=== PATIENT | male | born 1995 | race Two or more races ===

== ENCOUNTER 2022-02-02 05:53 | Emergency (ER) | payer MEDICAID ==
[~2022-02-02] VITALS: Ht 177.8 cm; Wt 170.0 kg
[2022-02-02 08:01] VITALS: BP 131/83
[2022-02-02] MEDS ORDERED: KETOROLAC TROMETH 60MG/2ML VIAL IM ONE (08:15)
[2022-02-02] MEDS ORDERED: OXYM-15 (08:51)
[2022-02-02] MEDS ORDERED: ACET-1158 PO (08:51)
[2022-02-02] MEDS ORDERED: IBUP800T26 PO (08:51)
[2022-02-02] MEDS ORDERED: LORA-483 GT (08:51)
== END 2022-02-02 08:52 | disposition home or self-care (01) ==
LOC: ER 05:53
DX: J06.9 Acute upper respiratory infection, unspecified (principal); B97.89 Other viral agents as the cause of diseases classified elsewhere; Z20.822 Contact with and (suspected) exposure to COVID-19
CPT/HCPCS: 36415; 87426; 87804; 96372; 99283; J1885

== ENCOUNTER 2023-09-02 22:25 | Emergency (ER) | payer MEDICAID ==
[~2023-09-02] VITALS: Ht 177.8 cm; Wt 80.0 kg
[~2023-09-02 22:25] MED LIST: ACET500T58 PO; IBUP-1455 PO; LORA-483 GT; OXYM-15; PANT40TA2 PO; ZOFR4T PO
[2023-09-02 22:58] LABS: Basophils # (auto) 0 10 ^3/uL (0-0.2); Basophils % (auto) 0.2 % (0.0-2.0); Eosinophils # (auto) 0.1 10 ^3/uL (0-0.8); Eosinophils % (auto) 1.2 % (0.0-7.0); Hematocrit 49.5 % (41.0-53.0); Hemoglobin 16.9 g/dL (13.5-17.5); Lymphocytes # (auto) 2.4 10 ^3/uL (0.4-5.4); Lymphocytes % (auto) 42.7 % (10.0-50.0); Mean Corpuscular Hemoglobin 31.8 pg (28.0-32.0); Mean Corpuscular Hgb Conc. 34.3 g/dL (32.0-36.0); Mean Corpuscular Volume 92.9 fL (80.0-100.0); Monocytes # (auto) 0.5 10 ^3/uL (0-1.3); Monocytes % (auto) 8.1 % (0.0-12.0); Neutrophils # (auto) 2.7 10 ^3/uL (1.6-8.6); Neutrophils % (auto) 47.8 % (37.0-80.0); Nucleated Red Blood Cells % 0.1 %; Red Blood Cells 5.33 10^6/uL (4.5-5.90); Red Cell Distribution Width 13.3 % (11.8-14.3); White Blood Cell 5.7 10^3/uL (4.4-10.8)
[2023-09-02 23:22] LABS: Alanine Aminotransferase 41 U/L (7-40); Albumin 4.8 g/dL (3.2-4.8); Alkaline Phosphatase 83 U/L (46-116); Anion Gap 6 (5-15); Aspartate Aminotransferase 36 U/L (13-40); BUN/Creatinine Ratio 10.5 (10.0-20.0); Bilirubin, Total 0.5 mg/dL (0.2-1.0); Blood Urea Nitrogen 11 mg/dL (9-23); Carbon Dioxide 27 mmol/L (20-30); Chloride 105 mmol/L (98-107); Glucose 107 mg/dL (74-106); Magnesium 2.2 mg/dL (1.6-2.6); Potassium 4.3 mmol/L (3.5-5.1); Sodium 138 mmol/L (136-145); Total Protein 7.2 g/dL (5.7-8.2)
[2023-09-03 01:53] VITALS: BP 121/75; PULSE 56; RESP 18; TEMP 98.6; O2SAT 98
== END 2023-09-02 22:27 | disposition left against medical advice (07) ==
LOC: ER 22:25
DX: R07.89 Other chest pain (principal); Z53.21 Procedure and treatment not carried out due to patient leaving prior to being seen by health care provider; Z79.899 Other long term (current) drug therapy; W18.39XA Other fall on same level, initial encounter; Y93.89 Activity, other specified; Y92.89 Other specified places as the place of occurrence of the external cause; Y99.8 Other external cause status
CPT/HCPCS: 36415; 71045; 80053; 83735; 84484; 85025; 93005

== ENCOUNTER 2024-06-14 22:00 | Emergency (ER) | payer MEDICAID ==
[~2024-06-14] VITALS: Ht 177.8 cm; Wt 76.6 kg
--- NOTE | 2024-06-14 22:17 | ED.PDOC ---
HPI Allergic reaction HPI Comments 28-year-old male came to emergency room due to allergic reaction. 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 Patient self medicated with an epi-pen and decided to go directly to the ER. Denies having any rashes or pruritus. Chief Complaint: Allergic Reaction Time Seen by MD: 22:15 Primary Care Provider: MARIELY Reviewed Notes: Nurses Notes Allergies: Coded Allergies: Codeine (Verified Allergy, Severe, 05/02/23) Morphine (Verified Allergy, Severe, 05/02/23) Sesame Oil (Verified Allergy, Severe, 06/14/24) Home Meds Active Scripts Epinephrine (Anaphylaxis) (Auvi-Q) 0.1 Mg/0.1 Ml Inj, 0.5 MG IJ O PRN for 1 Day, #1 INJ Prov:GILDARDO GARVIN MD 06/15/24 Prednisone (Prednisone) 20 Mg Tab, 20 MG PO DAILY for 4 Days, #4 MG Prov:GILDARDO GARVIN MD 06/15/24 Diphenhydramine Hcl (Benadryl Allergy) 25 Mg Tab, 25 MG PO TIDPRN PRN for 5 Days, #15 TAB Prov:GILDARDO GARVIN MD 06/15/24 Ondansetron Odt 4MG Tab (ZOFRAN PO) 4 Mg Tb, 4 MG PO Q8HP PRN for 7 Days, #21 TAB ODT TAB-DISSOLVE IN MOUTH, THEN SWALLOW Prov:PENELOPE GAINES MD 05/02/23 Pantoprazole Sodium Sesquihydr (Protonix) 40 Mg Tab, 40 MG PO DAILY, #30 TAB Prov:PENELOPE GAINES MD 05/02/23 Oxymetazoline Hcl (AFRIN 12 HOUR) 0.05 % Spr, 1 SPRAY NA BID, #15 ML Prov:GITA LLANOS 02/02/22 Loratadine (CLARITIN TABLET) 10 Mg Tb, 10 MG GT DAILY, #10 TAB Prov:GITA LLANOS 02/02/22 Ibuprofen Micronized (Ibuprofen) 800 Mg Tab, 800 MG PO TIDP PRN, #30 TAB Prov:GITA LLANOS 02/02/22 Acetaminophen (Acetaminophen) 500 Mg Tab, 500 MG PO Q4HPRN PRN, #30 TAB Prov:GITA LLANOS PAC 02/02/22 Information Source: Patient Mode of Arrival: EMS Severity: Moderate Rash: None SOB: Moderate Difficulty swallowing: Moderate Pruritus: None Timing: Minutes Duration: Since onset Prehospital treatment: Treatment (epi pen) Location: Throat Exposed to: Food Developed: Difficult Swallowing, Shortness of Breath, Throat Swelliing, Wheeze Review of Systems REVIEW OF SYSTEMS: No fever, no chills, or fatigue HEENT: (+) sore throat, no earache, no congestion, no neck pain. Cardiac: No chest pain. No palpitations. Lungs: (+) shortness of breath, no cough. (+) wheezing GI: No nausea, no vomiting, no diarrhea, no constipation, no abdominal pain : No dysuria, frequency, or urgency. No hematuria. Musculoskeletal: No joint pain , no joint swelling, no extremity edema. Skin: No rash, no itching. Neuro: No headache, no dizziness, no weakness Vital Signs Vital Signs Date Time Temp Pulse Resp B/P (MAP) Pulse Ox O2 Delivery O2 Flow Rate FiO2 06/15/24 00:00 82 06/14/24 23:54 98.3 16 107/67 (80) 99 98.3 06/14/24 23:04 Room Air* 0 21 Physical Exam General: Awake, alert and oriented. No acute distress. Skin: Skin in warm, dry and intact. Appropriate color for ethnicity. Nailbeds pink with no cyanosis. HEENT: The head is normocephalic and atraumatic. Conjunctivae are clear without exudates or hemorrhage. Sclera is non-icteric. EOM are intact. No signs of nystagmus. Eyelids are normal in appearance without swelling or lesions. Oral mucosa is pink and moist Neck: The neck is supple with normal range of motion. No JVD. Cardiac: Heart rate and rhythm are normal. No murmurs, gallops, or rubs are auscultated. Respiratory: No signs of respiratory distress. Lung sounds are clear in all lobes bilaterally without rales, rhonchi, or wheezes. Abdominal: Abdomen is soft, non-tender without distention. Bowel sounds are present and normoactive in all four quadrants. Extremities: Upper and lower extremities are atraumatic in appearance without deformity or edema. Neurological: The patient is awake, alert and oriented to person, place, and time with normal speech. Speech is clear. There is no facial asymmetry. Psychiatric: Appropriate mood and affect. Good judgement and insight. No visual or auditory hallucinations. Past Medical History PAST MEDICAL HISTORY: Thyroid Past Medical History (Other): Allergy to codeine, morphine, sesame seeds Surgical History: Tonsillectomy Family History Family History: Reviewed,noncontributory to illness Social History Smoker: Non-Smoker Alcohol: Occasionally Drugs: Denies Drug Use Lives In: Home Was a procedure done? Was a procedure done?: No Differential diagnosis (all) Differential Diagnosis: Anaphylaxis, Bronchospasm X-Ray, Labs, Meds, VS Vital Signs Date Time Temp Pulse Resp B/P (MAP) Pulse Ox O2 Delivery O2 Flow Rate FiO2 06/15/24 00:00 82 06/14/24 23:54 98.3 89 16 107/67 (80) 99 98.3 06/14/24 23:04 20 95 Room Air* 0 21 06/14/24 22:50 20 95 Room Air* 0 21 06/14/24 22:18 116 22 97 Room Air* 0 21 06/14/24 22:17 98.2 116 22 128/80 (96) 97 98.2 06/14/24 22:05 98.3 121 18 147/83 (104) 95 98.3 06/14/24 22:02 18 95 Room Air* 0 21 Current Medications Medications (Trade) Dose Ordered Sig/Terra Route Start Time Stop Time Status Last Admin Diphenhydramine HCl (Benadryl Injection) 50 mg ONCE ONCE IV 06/14/24 22:15 06/14/24 22:16 DC 06/14/24 22:34 Famotidine (Pepcid Injection) 20 mg ONCE ONCE IV 06/14/24 22:15 06/14/24 22:16 DC 06/14/24 22:33 Dexamethasone Sodium Phosphate (Decadron Injection) 10 mg ONCE ONCE IV 06/14/24 22:15 06/14/24 22:16 DC 06/14/24 22:33 Epinephrine HCl 0.5 mg ONCE ONCE IM 06/14/24 22:15 06/14/24 22:16 DC 06/14/24 22:52 Albuterol (Ventolin Medneb) 2.5 mg ONCE ONCE NEB 06/14/24 22:15 06/14/24 22:16 DC 06/14/24 22:48 Sodium Chloride 1,000 ml @ 1,000 mls/hr Q1H ONCE IV 06/14/24 22:15 06/14/24 23:14 DC 06/14/24 22:35 Time of 1ST Reevaluation: 22:09 Reevaluation 1ST: Unchanged Patient Education/Counseling: Diagnosis, Treatment Family Education/Counseling: No Family Present Departure 1 Departure Time of Disposition: 02:14 Impression: Primary Impression: Allergic reaction Disposition: 01 HOME / SELF CARE / HOMELESS Condition: Stable Additional Instructions: ED DISCHARGE INSTRUCTIONS Instructions: Please read all instructions provided in this packet carefully. Although you have been discharged from the Emergency Department, this does not mean that you have a "clean bill of health". No definitive diagnosis for your symptoms has been made today. It is possible that you are in the process of developing a serious illness. This is why you must return to the ED without fail if any new or worsening symptoms (especially if your symptoms include chest pain, trouble breathing, abdominal pain, fever, headache, confusion, trouble seeing, or trouble walking) It is also very important that you see a primary care doctor within the next 2-3 days to follow up. If you are unable to get an appointment, return to the ED for re-evaluation. e-Prescriptions Epinephrine (Anaphylaxis) (Auvi-Q) 0.1 Mg/0.1 Ml Inj 0.5 MG IJ O PRN for 1 Day, #1 INJ Prov: GILDARDO GARVNI MD 06/15/24 Prednisone (Prednisone) 20 Mg Tab 20 MG PO DAILY for 4 Days, #4 MG Prov: GILDARDO GARVIN MD 06/15/24 Diphenhydramine Hcl (Benadryl Allergy) 25 Mg Tab 25 MG PO TIDPRN PRN for 5 Days, #15 TAB Prov: GILDARDO GARVIN MD 06/15/24 Comments Patient reported he is feeling significantly improved after treatment in the emergency department. He denies any more shortness of breath. He states he would like to be discharged from the emergency department. Patient is managing his secretions, no sore throat, no trouble swallowing, no stridor, no wheezing on exam. Saturating 100% on room air. No rash or hives on exam. Extensive evaluation was performed in attempt to identify or rule out: (See differential diagnosis section) The following tests were ordered, and results were reviewed by me and discussed with patient: (See diagnostic results section) The following test were independently interpreted by me: N/A I reviewed and agreed with the following test results read by other providers: N/A I reviewed the following notes from the pt's past medical encounters: N/A Additional information was gathered from interviewing the following independent historians: N/A Discussion of management or test interpretation with external physician/other qualified health home care provider: N/A Addressed an acute or chronic illness that poses a threat to life or bodily function: Allergic reaction Drug therapy requiring intensive monitoring for toxicity: N/A Parenteral controlled substances: N/A Decision regarding elective major surgery with identified patient or procedure risk factors: N/A Decision regarding emergency major surgery: N/A Decision not to resuscitate or to de-escalate care because of poor prognosis: N/A Diagnosis or treatment significantly limited by social determinants of health: N/A Decision regarding hospitalization or escalation of hospital level of care: Risks and benefits of admission for further treatment of patient's condition was considered however due to patient's stable condition patient will be discharged to follow up closely or return to care for worsening of condition or inability to follow up. Critical Care Note Critical Care Time?: No Stability Stability form required: No Heart Score Heart Score: Heart Score Response (Comments) Value History N/A 0 EKG N/A 0 Age N/A 0 Risk Factors N/A 0 Troponin N/A 0 Total 0 I personally scribed for GILDARDO GARVIN MD ([email or web address]) on 06/14/24 at 22:17. Electronically submitted by Benito Browning ([email or web address]). GILDARDO GARVIN MD Jun 14, 2024 22:17
[2024-06-14 22:18] VITALS: PULSE 116; RESP 22; O2SAT 97
[2024-06-14] MEDS: FAMOTIDINE (10MG/ML) 2ML VL IV ONE (22:33)
[2024-06-14] MEDS: DexAMETHasone SOD PHOS 10MG/1ML VIAL INJ IV ONE (22:33)
[2024-06-14] MEDS: diphenhdrAMINE HCL 50 MG/1 ML VL IV ONE (22:34)
[2024-06-14] MEDS: SODIUM CHLORIDE 0.9% 1,000 ML IV ONE (22:35)
[2024-06-14] MEDS: ALBUTEROL SULF 2.5 MG/0.5ML(0.5%) NEB SOLN NEB ONE (22:48)
[2024-06-14] MEDS: EPINEPHrine HCL 1 MG/1 ML AMP IM ONE (22:52)
[2024-06-15] MEDS ORDERED: EPIN0.1I11 IJ (02:15)
[2024-06-15] MEDS ORDERED: PRED20TA2 PO (02:15)
[2024-06-15] MEDS ORDERED: DIPH25TA54 PO (02:15)
[2024-06-15 02:29] VITALS: BP 115/72; PULSE 85; RESP 14; TEMP 98; O2SAT 100
== END 2024-06-15 02:32 | disposition home or self-care (01) ==
LOC: ER 22:00
DX: T78.40XA Allergy, unspecified, initial encounter (principal); Z88.5 Allergy status to narcotic agent; Z91.018 Allergy to other foods; Z90.89 Acquired absence of other organs; Z79.899 Other long term (current) drug therapy; Z79.52 Long term (current) use of systemic steroids; Y92.89 Other specified places as the place of occurrence of the external cause
CPT/HCPCS: 94640; 96361; 96372; 96374; 96375; 99285; J0171; J1100; J1200; J3490; J7030